=== PATIENT | male | born 1990 | race Caucasian/White ===

== ENCOUNTER 2023-03-18 17:50 | Emergency (ER) | payer MEDICAID ==
[~2023-03-18] VITALS: Ht 175.3 cm; Wt 97.6 kg
[~2023-03-18 17:50] MED LIST: CIPR-259 PO; METR-159 PO; NO HOME MEDS; ONDA4TAB12 PO
[2023-03-18 18:11] VITALS: BP 133/90; PULSE 107; RESP 18; TEMP 97.5; O2SAT 96
== END 2023-03-18 20:45 | disposition home or self-care (01) ==
LOC: ER 17:50
DX: Z02.89 Encounter for other administrative examinations (principal); F12.90 Cannabis use, unspecified, uncomplicated; Z79.2 Long term (current) use of antibiotics; Z79.899 Other long term (current) drug therapy
CPT/HCPCS: 99281

== ENCOUNTER 2023-04-27 13:51 | Emergency (ER) | payer BC, MEDICAID ==
[~2023-04-27] VITALS: Ht 172.7 cm; Wt 68.0 kg
[~2023-04-27 13:51] MED LIST changes: -CIPR-259 PO; -METR-159 PO
[2023-04-27 14:08] VITALS: BP 144/101; PULSE 113; RESP 16; TEMP 98.7; O2SAT 96
== END 2023-04-27 15:04 | disposition home or self-care (01) ==
LOC: ER 13:52
DX: K52.9 Noninfective gastroenteritis and colitis, unspecified (principal)
CPT/HCPCS: 99281

== ENCOUNTER → 2023-05-10 | Emergency (ER) | payer BC ==
[~2023-05-10] VITALS: Ht 177.8 cm; Wt 76.4 kg
[~2023-05-10] MED LIST changes: +ASPI1TAB9 PO; +HYDROcodone/acetaminophen 5mg/325mg tablet PO ONE; +METO-292 PO; +ketorolac trometh inj. 60 MG/2 ML VIAL IM ONE; +metoclopramide 10mg tablet PO ONE
[2023-05-10 07:49] VITALS: BP 126/76; PULSE 80; RESP 18; TEMP 97.8; O2SAT 98
== END | disposition home or self-care (01) ==
LOC: ER 06:05
DX: G43.909 Migraine, unspecified, not intractable, without status migrainosus (principal)
CPT/HCPCS: 96372; 99284; J1885; 99283

== ENCOUNTER 2023-06-05 16:42 | Emergency (ER) | payer BC ==
[~2023-06-05] VITALS: Ht 175.3 cm; Wt 78.4 kg
[~2023-06-05 16:42] MED LIST changes: -HYDROcodone/acetaminophen 5mg/325mg tablet PO ONE; -ketorolac trometh inj. 60 MG/2 ML VIAL IM ONE; -metoclopramide 10mg tablet PO ONE
[2023-06-05 17:26] LABS: BASOPHILS # (AUTO) 0.1 X10'3 (0-0.2); BASOPHILS % (AUTO) 0.9 % (0-1); EOSINOPHILS % (AUTO) 0.2 % (0-6); HEMATOCRIT 47.9 % (42.0-52.0); HEMOGLOBIN 16.5 g/dl (14.0-17.9); LYMPHOCYTES % (AUTO) 19.3 % (21-51); MEAN CORPUSCULAR HEMOGLOBIN 33.9 PG (27.0-31.0); MEAN CORPUSCULAR HGB CONC 34.4 g/dL (33.0-36.5); MEAN CORPUSCULAR VOLUME 98.3 FL (78-98); MEAN PLATELET VOLUME 6.7 FL (7.4-10.4); MONOCYTES # (AUTO) 0.8 X10'3 (0-0.9); MONOCYTES % (AUTO) 7.8 % (2-12); NEUTROPHILS # (AUTO) 7.4 X10'3 (1.8-7.7); NEUTROPHILS % (AUTO) 71.8 % (42-75); PLATELET COUNT 369 X10'3 (140-440); RED BLOOD COUNT 4.87 X10'6 (4.70-6.10); RED CELL DISTRIBUTION WIDTH 12.7 % (11.5-14.5); WHITE BLOOD COUNT 10.4 X10'3 (4.5-11.0)
[2023-06-05 17:45] LABS: ALANINE AMINOTRANSFERASE 77 U/L (12-78); ALBUMIN 4.5 G/DL (3.4-5.0); ALKALINE PHOSPHATASE 96 IU/L (46-116); ANION GAP 15 (8-16); ASPARTATE AMINO TRANSFERASE 94 U/L (10-37); BILIRUBIN,TOTAL 0.6 MG/DL (0.1-1.0); BLOOD UREA NITROGEN 8 MG/DL (7-18); BUN/CREATININE RATIO 7.6 (10.0-20.0); CALCIUM 9.5 MG/DL (8.5-10.1); CHLORIDE 98 MMOL/L (99-107); CREATININE 1.05 MG/DL (0.60-1.10); GLUCOSE 84 MG/DL (70-104); POTASSIUM 3.8 MMOL/L (3.5-5.1); SODIUM 139 MMOL/L (135-145); TOTAL CARBON DIOXIDE 26.5 MMOL/L (24-32); TOTAL PROTEIN 8.9 G/DL (6.4-8.2); eCRCL 102 ML/MIN; eGFR 82 ML/MIN
[2023-06-05 19:56] VITALS: TEMP 98.4
[2023-06-06 00:28] LABS: BILIRUBIN,URINE NEGATIVE (Neg); CLARITY,URINE SLIGHTLY CLOUDY (Clear); COLOR,URINE YELLOW (Yellow); GLUCOSE, URINE NEGATIVE (Neg); KETONES,URINE 15 mg/dl (Neg); LEUKOCYTE ESTERASE ,URINE NEGATIVE (Neg); NITRITES, URINE NEGATIVE (Neg); OCCULT BLOOD,URINE NEGATIVE (Neg); PROTEIN,URINE >=300 mg/dl (Neg); UROBILINOGEN,URINE 0.2 E.U/dL (0.2-1.0)
[2023-06-06 00:32] LABS: UA COLLECTION TYPE VOIDED
[2023-06-06 00:33] LABS: MUCUS STRANDS MANY /LPF (Neg); SQUAMOUS EPITHELIAL CELL,UR NONE SEEN /LPF (FEW)
[2023-06-06 00:36] LABS: BACTERIA,URINE 2+ /HPF (Neg); RBC,URINE 0-2 /HPF (0-2); SPERM FEW /HPF (NEGATIVE); WBC,URINE 0-4 /HPF (0-4)
[2023-06-06] MEDS ORDERED: normal saline 1000ml 1,000 ML IV ONE ×2 (00:40→01:15)
[2023-06-06] MEDS ORDERED: ondansetron/PF 4mg/2ml inj IV ONE (00:50)
[2023-06-06 01:52] LABS: URINE AMPHETAMINE SCREEN NEGATIVE (Neg); URINE BARBITUATE SCREEN NEGATIVE (Neg); URINE BENZODIAZEPINES SCREEN NEGATIVE (Neg); URINE CANNABINOID SCREEN POSITIVE (Neg); URINE COCAINE SCREEN NEGATIVE (Neg); URINE METHADONE SCREEN NEGATIVE (Neg); URINE OPIATE SCREEN NEGATIVE (Neg); URINE PHENCYCLIDINE SCREEN NEGATIVE (Neg)
[2023-06-06] MEDS ORDERED: ONDA4TAB12 PO (02:31)
[2023-06-06 03:37] VITALS: BP 144/97; PULSE 102; RESP 20; O2SAT 96
== END 2023-06-06 03:51 | disposition home or self-care (01) ==
LOC: ER 16:42
DX: R11.10 Vomiting, unspecified (principal); R10.84 Generalized abdominal pain; R39.198 Other difficulties with micturition; F12.90 Cannabis use, unspecified, uncomplicated; Z88.8 Allergy status to other drugs, medicaments and biological substances
CPT/HCPCS: 36415; 71045; 80053; 80305; 81001; 83605; 84145; 85025; 87040; 93005; 96361; 96374; 99285; J2405; J7030

== ENCOUNTER 2023-06-27 17:11 | Emergency (ER) | payer BC ==
[~2023-06-27] VITALS: Ht 177.8 cm; Wt 79.0 kg
[2023-06-27 17:21] VITALS: BP 181/94; PULSE 129; RESP 20; TEMP 99.4; O2SAT 97
== END 2023-06-27 18:27 | disposition home or self-care (01) ==
LOC: ER 17:11
DX: Z13.89 Encounter for screening for other disorder (principal); F12.90 Cannabis use, unspecified, uncomplicated
CPT/HCPCS: 99281